=== PATIENT | female | born 2000 | race Caucasian/White ===

== ENCOUNTER 2021-03-11 12:47 | Emergency (ER) | payer OTHER ==
--- NOTE | 2021-03-11 13:16 | NUR ---
[employer] RO[employer] WORKER NOTE: NO ANSWER WHEN CALLED FROM [facility]
--- NOTE | 2021-03-11 13:55 | NUR ---
CALLED FOR TRIAGE, NO ANSWER
--- NOTE | 2021-03-11 14:36 | NUR ---
CALLED FOR TRIAGE, NO ANSWER. UNABLE TO LOCATE IN LOBBY.
== END 2021-03-11 14:38 | disposition left against medical advice (07) ==
LOC: ED 14:32
DX: N94.89 Other specified conditions associated with female genital organs and menstrual cycle (principal); Z53.21 Procedure and treatment not carried out due to patient leaving prior to being seen by health care provider